=== PATIENT | female | born 1985 | race Caucasian/White ===

== ENCOUNTER 2022-06-11 23:27 | Emergency (ER) | payer BC ==
[2022-06-11 23:46] VITALS: RESP 20; BMI 26.4
[2022-06-12 01:24] VITALS: PULSE 89; TEMP 98.3
[2022-06-12 01:27] VITALS: BP 105/72
== END 2022-06-12 01:43 | disposition home or self-care (01) ==
LOC: JER 23:27
DX: O26.892 Other specified pregnancy related conditions, second trimester (principal); M79.641 Pain in right hand; M79.642 Pain in left hand
CPT/HCPCS: 99281-25